=== PATIENT | female | born 1975 | race American Indian/Alaskan Native ===

== ENCOUNTER 2017-05-11 05:49 | Day surgery (SDC) | payer OTHER ==
--- NOTE | 2017-05-11 07:20 | Anesthesia Consultation ---
Anesthesia Consult and Med Hx Date of service: 05/11/17 - Airway Anesthetic Teeth Evaluation: Poor (some missing teeth, broken teeth in the back) ROM Head & Neck: Adequate Mental/Hyoid Distance: Adequate Mallampati Class: Class II Intubation Access Assessment: Probably Good - Pre-Operative Health Status ASA Pre-Surgery Classification: ASA3 Proposed Anesthetic Plan: MAC - Other Systems Hx Obesity: Yes (Morbid obesity) - Additional Comments Anesthesia Medical History Comments: Pre-bariatric evaluation
--- NOTE | 2017-05-11 07:20 | Anesthesia Day of Surgery ---
Anesthesia Day of Surgery - Day of Surgery Patient Examined: Yes Patient H&P Reviewed: Yes Patient is NPO: Yes
[2017-05-11] MEDS ORDERED: DIPRIVAN 10 MG/ML IV ONE ×2 (07:27)
[2017-05-11] MEDS ORDERED: NACL 0.9% 1000 ML 1,000 ML IV SCH (08:00)
--- NOTE | 2017-05-11 08:00 | Operative Report ---
Operative Report Operative Report: EGD Post bypass DATE: 05/11/17 OPERATIVE REPORT - EGD PREOP DIAGNOSIS: gastric dyspepsia POSTOP DIAGNOSIS: failure of GJ anastamosis SURGERY: Upper endoscopy. SURGEON: Robb Landry M.D. TYPE OF ANESTHESIA: MAC. ESTIMATED BLOOD LOSS: None. COMPLICATIONS: None. SPECIMENS REMOVED: None. FINDINGS: 1. normal esophagus 2. gastric pouch - 20ml 3. gastrojejunal anastomosis is 25mm INDICATIONS:INDICATION FOR PROCEDURE: Patient is a 41-year-old female s/p gastric bypass. The patient is here today for evaluation for revisional surgery. The patient is here for a planned EGD for gastric dyspepsia. PROCEDURE DETAILS: After consent was reviewed, patient was taken back to the operating room where patient was placed in the left lateral decubitus position and a bite block was placed in the mouth. After a time-out was called, MAC anesthesia was initiated. I then passed the endoscope into the patients oropharynx, into the esophagus, visualized the entire esophagus, which was all within normal limits. I then visualized the gastric pouch which was normal and about 20ml in size. The gastrojejunal anastomosis was enlarged at about 25mm. The proximal portion of the sylvain limb was normal. I then desufflated the gastric pouch and removed the endoscope. Patient tolerated procedure well and was transferred to recovery room in good and stable condition.
--- NOTE | 2017-05-11 08:01 | Discharge Summary ---
Providers - Providers Date of discharge: 05/11/17 Attending physician: JOEY MOON Primary care physician: JODY HANSEN Hospitalization Condition: Good Procedures: egd Disposition: DC-01 TO HOME OR SELFCARE Core Measure Documentation - Palliative Care Palliative Care/ Comfort Measures: Not Applicable - Core Measures Any of the following diagnoses?: none Exam - Physical Exam Narrative exam: unchanged from pre-op - Constitutional Vitals: Temp Pulse Resp BP Pulse Ox 98.1 F 101 H 16 143/95 97 05/11/17 07:41 05/11/17 07:41 05/11/17 07:41 05/11/17 07:41 05/11/17 07:41 Plan Activity: no restrictions Weight Bearing Status: Full Weight Bearing Diet: regular Follow up with: JODY HANSEN MD [Primary Care Provider] - 7 Days
--- NOTE | 2017-05-11 08:20 | Post Anesthesia Evaluation ---
- Post Anesthesia Evaluation Patient Participated: Yes Airway Patent: Yes Stable Respiratory Function: Yes Nausea/Vomiting: No Temp > 96.8F: Yes Pain Manageable: Yes Adequeate Hydration: Yes Anesthesia Complications: No Block Receding Appropriately: Not Applicable Patient on Ventilator: No
[2017-05-11 08:42] VITALS: BP 145/82
== END 2017-05-11 05:50 | disposition home or self-care (01) ==
LOC: GIO 05:49
PROVIDERS: ATTEND Surgery
DX: K31.4 Gastric diverticulum (principal); K31.89 Other diseases of stomach and duodenum; F32.9 Major depressive disorder, single episode, unspecified; G43.909 Migraine, unspecified, not intractable, without status migrainosus; D50.9 Iron deficiency anemia, unspecified; E66.01 Morbid (severe) obesity due to excess calories; Z98.84 Bariatric surgery status; Z91.012 Allergy to eggs; Z91.011 Allergy to milk products; Z91.018 Allergy to other foods; Z68.42 Body mass index [BMI] 45.0-49.9, adult
CPT/HCPCS: 43235; J2704; J7030

== ENCOUNTER 2017-08-01 08:01 | Inpatient (IN) | payer OTHER ==
[2017-08-01] MEDS ORDERED: XYLOCAINE MPF 2% ONE (08:53)
[2017-08-01] MEDS ORDERED: DIPRIVAN 10 MG/ML IV ONE (08:53)
[2017-08-01] MEDS ORDERED: ZEMURON IV ONE (08:53)
[2017-08-01] MEDS ORDERED: SUBLIMAZE ONE (08:53)
[2017-08-01] MEDS ORDERED: FLAGYL 500 MG/100 ML 500 MG/100 ML BAG IV NR (09:00)
[2017-08-01] MEDS ORDERED: REGLAN IV PRN (09:00)
[2017-08-01] MEDS ORDERED: LOVENOX SUB-Q NR (09:00)
[2017-08-01] MEDS ORDERED: ANCEF/STERILE WATER 2 GM/20 ML 2 GM/20 ML SYRINGE IV NR (09:00)
[2017-08-01] MEDS ORDERED: APRESOLINE IV PRN (09:00)
[2017-08-01] MEDS ORDERED: ZOFRAN IV PRN (09:00)
[2017-08-01] MEDS ORDERED: TRANSDERM-SCOP TD SCH (09:00)
[2017-08-01] MEDS: LACTATED RINGERS 1,000 ML IV SCH ×3 (09:10→19:31)
--- NOTE | 2017-08-01 09:20 | Anesthesia Consultation ---
Anesthesia Consult and Med Hx Date of service: 08/01/17 - Airway Anesthetic Teeth Evaluation: Dentures (Upper denture) ROM Head & Neck: Adequate Mental/Hyoid Distance: Adequate Mallampati Class: Class II Intubation Access Assessment: Probably Good - Pulmonary Exam CTA: Yes - Cardiac Exam Cardiac Exam: RRR - Pre-Operative Health Status ASA Pre-Surgery Classification: ASA3 Proposed Anesthetic Plan: General - Pulmonary Hx Sleep Apnea: No (R/O) - Central Nervous System Hx Psychiatric Problems: No - Hematic Hx Anemia: Yes - Other Systems Hx Alcohol Use: No Hx Substance Use: No Hx Cancer: No Hx Obesity: Yes
--- NOTE | 2017-08-01 09:20 | Anesthesia Day of Surgery ---
Anesthesia Day of Surgery - Day of Surgery Patient Examined: Yes Patient H&P Reviewed: Yes Patient is NPO: Yes
[2017-08-01] MEDS ORDERED: MARCAINE 0.5% 30 ML INFILTRATI ONE (09:29)
[2017-08-01] MEDS ORDERED: XYLOCAINE 1% MPF 5 mL ONE (09:30)
[2017-08-01 10:14] LABS: Bacteria,Urine 4+ /HPF (Negative); Bilirubin,Urine NEG (Negative); Blood,Urine NEG (Negative); Ketones,Urine NEG (Negative); Leukocyte Esterase,Urine SM (Negative); Nitrite,Urine NEG (Negative); Protein,Urine <15 mg/dL mg/dL (Negative); RBC,Urine < 1.0 /HPF (0.0-6.0); Urobilinogen,Urine < 2.0 mg/dL (<2.0)
[2017-08-01] MEDS ORDERED: XYLOCAINE 1% MPF 5 mL INFILTRATI ONE (10:37)
[2017-08-01] MEDS ORDERED: NACL 0.9% IR ONE (10:37)
[2017-08-01] MEDS ORDERED: MARCAINE 0.5% INFILTRATI ONE (10:38)
[2017-08-01] MEDS ORDERED: NEOSTIGMINE ONE (11:06)
[2017-08-01] MEDS ORDERED: DECADRON ONE (11:06)
[2017-08-01] MEDS ORDERED: ROBINUL ONE (11:06)
[2017-08-01] MEDS ORDERED: ZOFRAN ONE (11:06)
[2017-08-01] MEDS ORDERED: DILAUDID ONE (11:13)
[2017-08-01] MEDS: MORPHINE IV PRN ×5 (11:55→21:04)
[2017-08-01] MEDS: NORCO PO PRN (12:18)
[2017-08-01] MEDS: MYLICON PO PRN ×2 (12:19→17:19)
--- NOTE | 2017-08-01 13:04 | Post Anesthesia Evaluation ---
- Post Anesthesia Evaluation Patient Participated: Yes Airway Patent: Yes Stable Respiratory Function: Yes Temp > 96.8F: Yes Pain Manageable: Yes Adequeate Hydration: Yes Anesthesia Complications: No
[2017-08-02] MEDS: LACTATED RINGERS 1,000 ML IV SCH ×2 (02:59→04:52)
[2017-08-02] MEDS: NORCO PO PRN ×3 (03:03→16:08)
[2017-08-02] MEDS: MYLICON PO PRN ×2 (04:53→08:53)
[2017-08-02 05:46] LABS: Basophils % (Auto) 0.6 % (0.0-1.8); Eosinophils % (Auto) 0.2 % (0.0-4.3); Hematocrit 31.4 % (30.3-42.9); Hemoglobin 10.4 gm/dl (10.1-14.3); Mean Corpuscular HGB Conc 33 % (30-34); Mean Corpuscular Volume 75 fl (79-97); Platelet Count 295 K/mm3 (140-440); Red Blood Count 4.16 M/mm3 (3.65-5.03); Red Cell Distribution Width 17.9 % (13.2-15.2); White Blood Count 12.3 K/mm3 (4.5-11.0)
[2017-08-02 05:47] LABS: Mean Corpuscular Hemoglobin 25 pg (28-32)
[2017-08-02 05:56] LABS: Anion Gap 18 mmol/L; BUN/Creatinine Ratio 10; Blood Urea Nitrogen 4 mg/dL (7-17); Calcium 8.3 mg/dL (8.4-10.2); Carbon Dioxide 21 mmol/L (22-30); Chloride 104.6 mmol/L (98-107); Glucose 105 mg/dL (65-100); Sodium 141 mmol/L (137-145)
[2017-08-02] MEDS ORDERED: LOVENOX SUB-Q SCH (10:00)
[2017-08-02] MEDS ORDERED: MAGNESIUM SULFATE 2GM/50ML 2 GM/50 ML BAG IV ONE (12:24)
[2017-08-02] MEDS ORDERED: KCL 10MEQ/100ML 10 MEQ/100 ML BAG IV SCH (12:30)
[2017-08-02] MEDS ORDERED: POTASSIUM CHLORIDE PO STA (12:40)
--- NOTE | 2017-08-02 16:17 | Discharge Summary ---
Providers - Providers Date of Admission: 08/01/17 08:01 Attending physician: NEIDA HERNANDEZ Primary care physician: JODY HANSEN Hospitalization Reason for admission: surgery Procedures: Laparoscopic GJ revision with biliopancreatic limb lengthening Hospital course: 42 y.o. F admitted to the hospital for bariatric surgery. She tolerated the procedure well. On POD 1 she tolerated liquids and had minimal nausea. She denies vomiting. Her pain was controlled. On POD 1 she had hypokalemia. She was given 40meq of KCl PO. She was discharged on POD 1. Disposition: DC-01 TO HOME OR SELFCARE Core Measure Documentation - Palliative Care Palliative Care/ Comfort Measures: Not Applicable - Core Measures Any of the following diagnoses?: none Exam - Physical Exam Narrative exam: gen: A+Ox3 pulm: equal rise and fall of chest cardio: rrr abd: obese, soft, tender at incision sites. incisions are with minimal dry blood ext no c/c/e - Constitutional Vitals: Temp Pulse Resp BP Pulse Ox 99.0 F 87 20 122/78 94 08/02/17 12:05 08/02/17 12:07 08/02/17 12:05 08/02/17 12:05 08/02/17 12:07 Plan Activity: other (no lifting >15lbs for 6 weeks. ) Diet: clear liquids (sugar free liquids ) Wound: keep clean and dry Additional Instructions: follow up for wound check Follow up with: JODY HANSEN MD [Primary Care Provider] - 7 Days
[2017-08-02 16:53] VITALS: BP 136/78
== END 2017-08-02 17:20 | disposition home or self-care (01) | DRG 327 ==
LOC: 3A 08:01 → 3B-SURG 13:21
PROVIDERS: ADMIT Specialist; ATTEND Specialist
PROC: 0DW63CZ Revision of Extraluminal Device in Stomach, Percutaneous Approach (ICD-10-PCS; principal; 2017-08-01)
PROC: 0BQT4ZZ Repair Diaphragm, Percutaneous Endoscopic Approach (ICD-10-PCS; 2017-08-01)
DX: K95.89 Other complications of other bariatric procedure (principal); Z68.42 Body mass index [BMI] 45.0-49.9, adult; K44.9 Diaphragmatic hernia without obstruction or gangrene; G47.00 Insomnia, unspecified; G43.909 Migraine, unspecified, not intractable, without status migrainosus; E87.6 Hypokalemia; Y84.8 Other medical procedures as the cause of abnormal reaction of the patient, or of later complication, without mention of misadventure at the time of the procedure; E66.01 Morbid (severe) obesity due to excess calories
CPT/HCPCS: 36415; 80048; 81001; 81025; 83735; 85025; 94760; J0690; J1100; J1170; J1650; J2270; J2405; J2704; J2710; J2765; J3010; J3475; J3480; J7120

== ENCOUNTER 2017-10-19 09:02 | Outpatient (CLI) | payer OTHER ==
--- NOTE | 2017-10-19 12:29 | Fluoroscopy Report ---
UGI WITH AIR WITH KUB INDICATION: Nausea with vomiting. Status post gastric bypass in July 2017 and cholecystectomy in September 2017. COMPARISON: None similar at this institution. FINDINGS: Upper GI exam performed. Patient swallowed thick and thin barium without any difficulty and tolerated effervescent granules well. Range Master radiograph demonstrates nonobstructive bowel gas pattern and anastomotic thomas in the left mid abdomen. Esophagus is normal in course and caliber. Normal peristalsis and mucosal pattern, to the extent assessed. No demonstrable hiatal hernia or gastroesophageal reflux. Normal residual stomach with prompt passage of contrast beyond into the anastomosed normal caliber small bowel. CONCLUSION: Unremarkable post gastric bypass exam, as described. Thank you for the opportunity to participate in this patient's care.
== END 2017-10-19 09:03 | disposition home or self-care (01) ==
LOC: FLUORO 09:02
PROVIDERS: ATTEND Specialist
DX: R11.2 Nausea with vomiting, unspecified (principal); Z90.49 Acquired absence of other specified parts of digestive tract; Z98.84 Bariatric surgery status
CPT/HCPCS: 74247